=== PATIENT | male | born 1955 | race Caucasian/White ===

== ENCOUNTER 2017-10-30 15:00 | Outpatient (RCR) | payer OTHER ==
[~2017-10-30 15:00] MED LIST: AMLO-104 PO; ATEN-1 PO; ATOR20TA22 PO; INSULIN PUMP; LEV500 PO; RAMI10CA72 PO
[2017-10-31] MEDS ORDERED: MULT-1335 PO (11:12)
[2017-10-31] MEDS ORDERED: ASCO-182 PO (11:12)
== END 2017-11-05 13:24 | disposition home or self-care (01) ==
LOC: RAON 15:00
PROVIDERS: ATTEND Radiology Radiation Oncology
DX: Z02.9 Encounter for administrative examinations, unspecified (principal)